=== PATIENT | male | born 1960 | race Caucasian/White ===

== ENCOUNTER 2018-08-12 08:37 | Outpatient (CLI) | payer OTHER ==
--- NOTE | 2018-08-12 09:11 | RAD ---
XR Lumbar Spine 2 Or 3 View HISTORY: Lumbar radiculopathy COMPARISON: None FINDINGS: The vertebral bodies are normal in height minimal disc narrowing is seen at L5-S1. Small os teophytes are present. Mild degenerative facet changes are seen. No abnormal motion on these flexion or extension views. IMPRESSION: Mild arthritic changes in the spine.
--- NOTE | 2018-08-12 10:02 | MRI ---
MRI Lumbar Spine WO Con HISTORY: Left-sided back pain COMPARISON: None. FINDINGS: The vertebral bodies are normal in height. Disc space height appears relatively well preser ayleen. There is no significant periaortic adenopathy. The visualized portions of the kidneys are normal. T12-L1: Unremarkable. L1-2: Unremarkable. L2-3: Mild degenerative facet changes are seen without canal or foraminal stenosis. L3-4: Mild degenerative facet changes are also present at this level without significant canal or for aminal narrowing. L4-5: Degenerative facet changes also present at this level there is borderline bilateral foraminal n arrowing. No central canal stenosis. L5-S1: There is a small right lateral disc protrusion at this level. There is no evidence of signific ant canal or foraminal narrowing. IMPRESSION: Small right lateral disc protrusion at L5-S1. No significant canal or foraminal stenosis identified at any level.
== END 2018-08-12 08:38 | disposition home or self-care (01) ==
LOC: TBSIIMAG 08:37
PROVIDERS: ATTEND Neurological Surgery
DX: M47.26 Other spondylosis with radiculopathy, lumbar region (principal); M51.27 Other intervertebral disc displacement, lumbosacral region
CPT/HCPCS: 72100; 72148